=== PATIENT | female | born 2000 | race Caucasian/White ===

== ENCOUNTER 2018-09-04 07:10 | Emergency (ER) | payer SELFPAY ==
[~2018-09-04] VITALS: Ht 165.1 cm; Wt 81.6 kg
[2018-09-04 07:23] VITALS: BP_SYST 108
[2018-09-04] MEDS ORDERED: ONDANSETRON 4 MG ODT TAB PO ONE (08:00)
[2018-09-04 08:40] VITALS: BP_SYST 108
== END 2018-09-04 08:40 | disposition home or self-care (01) ==
LOC: SED 07:10
DX: K52.9 Noninfective gastroenteritis and colitis, unspecified (principal)
CPT/HCPCS: 74018; 81002; 81025; 99283; Q0162

== ENCOUNTER 2018-12-01 16:12 | Emergency (ER) | payer MEDICAID ==
[~2018-12-01] VITALS: Ht 165.1 cm; Wt 72.1 kg
[2018-12-01 16:15] VITALS: BP_SYST 118
--- NOTE | 2018-12-01 16:54 | NUR ---
Patient to ER bed 7 to gown for evaluation. Side rails up. Report given to Gabbie GUZMAN.
--- NOTE | 2018-12-01 17:10 | NUR ---
Patient brought in complaining of gradual constant vaginal pain x 3 days that worsened this morning. Patient reports pain inside vagina and feels swelling. Patient reports she is currently sexual active with one partner and does not use any contraception. Also complaining of mild back pain, non radiating. Pain 9/10. No other complaints/injuries per patient or as noted. Will continue to monitor.
--- NOTE | 2018-12-01 17:11 | NUR ---
ER at bedside examining patient.
[2018-12-01] MEDS ORDERED: NACL 0.9% 1,000 ML IV ONE (17:15)
[2018-12-01] MEDS ORDERED: MORPHINE 4 MG/ML INJ. SYRINGE IVP ONE (17:15)
[2018-12-01] MEDS ORDERED: ONDANSETRON HCL 4 MG/2 ML VIAL IVP ONE (17:15)
--- NOTE | 2018-12-01 17:17 | NUR ---
Pelvic exam performed by Dr. Ruby with MEGAN Arias at bedside for entire examination. Patient tolerated procedure well. Patient assisted to position of comfort after examination.
--- NOTE | 2018-12-01 17:20 | NUR ---
Vaginal mass size of a grape seen on pelvic exam.
--- NOTE | 2018-12-01 17:25 | NUR ---
# 20 gauge angiocath placed to LAC. Use of asceptic technique. Opsite placed over site. Blood return noted. Blood for lab drawn from site. Flushed with 10 cc of normal saline. No evidence of infiltration noted. Patient tolerated well.
--- NOTE | 2018-12-01 17:42 | NUR ---
Patient transported to radiology via gurney, accompanied by [employer] combination technician. Chaperoned patient the entire in ultrasound. Patient tolerated well.
[2018-12-01 17:44] LABS: HEMATOCRIT 39.2 % (36-48); HEMOGLOBIN 13.1 g/dL (12.0-16.0); MEAN CORPUSCULAR HEMOGLOBIN 28 pg (27-31); MEAN CORPUSCULAR HGB CONC 33 % (32-36); MEAN CORPUSCULAR VOLUME 83 fL (79.0-98.0); PLATELET COUNT (AUTO) 326 K/uL (130-430); RED BLOOD CELL COUNT(AUTO) 4.72 MIL/uL (4.2-6.2)
[2018-12-01 17:45] LABS: BILIRUBIN,URINE NEGATIVE (NEGATIVE); CLARITY/URINE HAZY (CLEAR); COLOR,URINE YELLOW (YELLOW); GLUCOSE,URINE NEGATIVE (NEGATIVE); KETONES,URINE 2+ (NEGATIVE); NITRITE, URINE POSITIVE (NEGATIVE); PH,URINE 5.5 (5.0-8.0); PROTEIN URINE NEGATIVE (NEGATIVE); UROBILINOGEN,URINE 0.2 (0.2-1.0)
[2018-12-01 17:53] LABS: BLOOD, URINE TRACE (NEGATIVE); LEUKOCYTE ESTERASE ,URINE TRACE (NEGATIVE)
[2018-12-01 17:54] LABS: CALCIUM 9.3 mg/dL (8.4-11.0); CREATININE 0.51 mg/dL (0.55-1.30); POTASSIUM 3.9 mmol/L (3.5-5.1)
[2018-12-01 17:55] LABS: BACTERIA,URINE MANY /HPF (None Seen); MUCUS,URINE None Seen /LPF (None Seen); RBC,URINE 0-3 /HPF (0-3)
[2018-12-01 17:57] LABS: INR 1.1 (0.8-1.2); PROTHROMBIN TIME 10.9 SECS (9.5-12.5)
[2018-12-01 18:00] LABS: ALBUMIN 3.8 g/dL (3.4-4.8); TOTAL BILIRUBIN 0.5 mg/dL (0.0-1.0)
[2018-12-01] MEDS ORDERED: KETOROLAC TROMETHAMINE 30 MG VIAL IVP ONE (18:00)
[2018-12-01] MEDS ORDERED: cefTRIAXone 1 GM IVPB PREMIX 50 ML IV ONE (18:15)
[2018-12-01] MEDS ORDERED: AZITHROMYCIN 250 MG TABLET PO ONE (18:15)
[2018-12-01 18:16] LABS: BAND % (MANUAL) 1 % (0-6); BASOPHILS % (MANUAL) 0 % (0-2); EOSINOPHILS % (MANUAL) 0 % (0-7); LYMPHOCYTES % (MANUAL) 9 % (20-46); MONOCYTES % (MANUAL) 5 % (0-11)
--- NOTE | 2018-12-01 18:30 | NUR ---
Blood cultures drawn, prior to administration of antibiotic.
--- NOTE | 2018-12-01 18:30 | NUR ---
Dr. Waddell at bedside examining patient
--- NOTE | 2018-12-01 19:45 | NUR ---
waiting call back from [facility] [place]. Patient updated.
--- NOTE | 2018-12-01 21:42 | NUR ---
D TONY RE-EVAL PT AT THE BEDSIDE AND DISCUSSING THE PLAN OF TX TO THE PT.
[2018-12-01] MEDS ORDERED: ACETAMINOPHEN/CODEINE 300 MG-30 MG TABLET PO ONE (22:00)
[2018-12-01 22:03] VITALS: BP_SYST 116
--- NOTE | 2018-12-01 22:03 | NUR ---
Patient given written and verbal discharge instructions and verbalizes understanding. ER MD discussed with patient the results and treatment provided. Patient in stable condition. ID arm band removed. IV catheter removed intact and dressing applied, no active bleeding. Rx of Macrobid and Tylenol No. 3 given. Patient educated on pain management and to follow up with PMD. Pain Scale 2/10 Opportunity for questions provided and answered. Medication side effect fact sheet provided.
[2018-12-04 03:06] LABS: CHLAMYDIA TRACHOMATIS NAA Negative (Negative); NEISSERIA GONORRHOEAE NAA Negative (Negative)
== END 2018-12-01 22:03 | disposition home or self-care (01) ==
LOC: SED 16:12
DX: N39.0 Urinary tract infection, site not specified (principal); N28.89 Other specified disorders of kidney and ureter; R39.15 Urgency of urination
CPT/HCPCS: 36415; 76857; 76830; 80053; 81000; 81025; 83605; 83690; 85007; 85027; 85610; 85730; 87040; 87086; 87186; 87210; 87491; 87591; 96365; 96375; 99284; J0696; J1885; J2270; J2405; J7030; Q0144

== ENCOUNTER 2018-12-16 19:47 | Emergency (ER) | payer MEDICAID ==
[~2018-12-16] VITALS: Ht 165.1 cm; Wt 72.6 kg
[2018-12-16 20:10] VITALS: BP_SYST 120
[2018-12-16] MEDS ORDERED: DIPHENHYDRAMINE INJ 50 MG/ML VIAL IVP ONE (20:30)
[2018-12-16] MEDS ORDERED: methylPREDNISolone SOD SUCC/PF 62.5 MG/ML VIAL IVP ONE (20:30)
[2018-12-16] MEDS ORDERED: FAMOTIDINE PF 20 MG/2 ML VIAL IVP ONE (20:30)
[2018-12-16] MEDS ORDERED: NACL 0.9% 1,000 ML IV ONE (20:30)
--- NOTE | 2018-12-16 20:30 | NUR ---
Patient to ER bed 5 to gown for evaluation. Side rails up.
--- NOTE | 2018-12-16 20:33 | NUR ---
ED MYLES Ferrell bedside for Pt eval
[2018-12-16] MEDS ORDERED: EPINEPHrine 1 MG/ML AMP SUBCUT ONE (20:45)
--- NOTE | 2018-12-16 20:45 | NUR ---
Pt BIB family to ED C/O acute, constant, throat tightness, difficulty swallowing, pruritic red skin rash, facial swelling, mild intermittent nausea, shortly after drinking a boba drink today at 1500. She took Benadryl 50 mg PO with minimal relief. Denies any known food or drug allergies, denies any previous episodes, denies any new soaps, detergents, or lotions. No other injuries and or complaints noted. VSS no s/s of acute distress. Resting on gurney with rails up
[2018-12-16] MEDS ORDERED: FAMOTIDINE PF 20 MG/2 ML VIAL ONE (21:43)
[2018-12-16 23:18] VITALS: BP_SYST 119
--- NOTE | 2018-12-16 23:18 | NUR ---
Patient given written and verbal discharge instructions and verbalizes understanding. ER MD discussed with patient the results and treatment provided. Patient in stable condition. ID arm band removed. IV catheter removed intact and dressing applied, no active bleeding. Rx of PREDNISONE AND BENADRYL given. Patient educated on pain management and to follow up with PMD. Pain Scale 0/10. Opportunity for questions provided and answered. Medication side effect fact sheet provided.
== END 2018-12-16 23:18 | disposition home or self-care (01) ==
LOC: SED 19:47
DX: T78.40XA Allergy, unspecified, initial encounter (principal); X58.XXXA Exposure to other specified factors, initial encounter
CPT/HCPCS: 96372; 96374; 96375; 99283; J0171; J1200; J2930; J3490; J7030

== ENCOUNTER 2019-02-06 22:05 | Emergency (ER) | payer MEDICAID ==
[~2019-02-06] VITALS: Ht 165.1 cm; Wt 59.0 kg
[2019-02-06 22:25] VITALS: BP_SYST 121
--- NOTE | 2019-02-06 22:31 | NUR ---
Patient to ER bed 04 to gown for evaluation. Side rails up. Report given to Marcel GUZMAN.
--- NOTE | 2019-02-06 22:45 | NUR ---
AWAKE, ALERT. PT STATES THAT SHE HAD BEEN EXPERIENCING BLISTERS IN MOUTH SINCE YESTERDAY, 8/10 IN PAIN SCALE. SHE ALSO STUBBED HER RIGHT TOE LAST NIGHT IN HER BED, AND THE PAIN IS RADIATING UPWARDS TO HER LEGS TO HER LEGS.
--- NOTE | 2019-02-06 22:52 | NUR ---
ER Dr.JANOO FERNANDEZ at bedside examining patient.
[2019-02-06] MEDS ORDERED: ACETAMINOPHEN/CODEINE 300 MG-30 MG TABLET PO ONE (23:00)
--- NOTE | 2019-02-06 23:15 | NUR ---
HCG TEST NEGATIVE.
--- NOTE | 2019-02-06 23:19 | NUR ---
TYLENOL #3 1 TAB GIVEN FOR C/O PAIN, 8/10 IN PAIN SCALE.
[2019-02-07 00:50] VITALS: BP_SYST 121
--- NOTE | 2019-02-07 00:50 | NUR ---
Patient given written and verbal discharge instructions and verbalizes understanding. ER DR TONY FERNANDEZ discussed with patient the results and treatment provided. Patient in stable condition. ID arm band removed. Rx of NAPROSYN,FLEXIRIL, MAGIC MOUTHWASH given. Patient educated on pain management and to follow up with PMD. Pain Scale . Opportunity for questions provided and answered. Medication side effect fact sheet provided.
== END 2019-02-07 00:50 | disposition home or self-care (01) ==
LOC: SED 22:05
DX: S93.601A Unspecified sprain of right foot, initial encounter (principal); K12.1 Other forms of stomatitis; W22.8XXA Striking against or struck by other objects, initial encounter; Y93.89 Activity, other specified; Y92.89 Other specified places as the place of occurrence of the external cause; Y99.8 Other external cause status
CPT/HCPCS: 81025; 99283